=== PATIENT | female | born 1970 | race Caucasian/White ===

== ENCOUNTER 2022-03-29 21:02 | Emergency (ER) | payer SELFPAY ==
[~2022-03-29] VITALS: Ht 152.4 cm; Wt 59.0 kg
[2022-03-29 22:10] VITALS: BP 124/60
--- NOTE | 2022-03-29 22:13 | NUR ---
TO LOBBY A/W BED AMBULATORY
[2022-03-29] MEDS ORDERED: HYDROcodone/APAP 5/325 MG 1 TAB TAB PO ONE (22:50)
[2022-03-29] MEDS ORDERED: BACITRACIN OINT 500 UNITS/GM PKT TP ONE (22:50)
[2022-03-29] MEDS ORDERED: AMOXIL/CLAVULANATE 875/125 MG 1 TAB PO ONE (22:50)
[2022-03-29] MEDS ORDERED: IBUP-2213 PO (23:26)
[2022-03-29] MEDS ORDERED: AMOX1TAB8 PO (23:26)
--- NOTE | 2022-03-30 00:13 | NUR ---
XRAY AT BEDSIDE
[2022-03-30] MEDS ORDERED: AMOXIL/CLAVULANATE 875/125 MG 1 TAB ONE (00:47)
[2022-03-30] MEDS ORDERED: BACITRACIN OINT 500 UNITS/GM PKT TP ONE (00:47)
[2022-03-30] MEDS ORDERED: HYDROcodone/APAP 5/325 MG 1 TAB TAB ONE (00:47)
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
[2022-03-30 01:12] VITALS: BP 120/64
--- NOTE | 2022-03-30 01:13 | NUR ---
Patient discharged with v/s stable. Written and verbal after care instructions given and explained. Patient alert, oriented and verbalized understanding of instructions. Ambulatory with steady gait. All questions addressed prior to discharge. ID band removed. Patient advised to follow up with PMD. Rx of AMOX-CLAV 875-125 TAB AND IBUPROFEN given. Patient educated on indication of medication including possible reaction and side effects. Opportunity to ask questions provided and answered. VSS, A/OX4, UNLABORED BREATHING, AMBULATORY, AND CALM DEMEANOR.
--- NOTE | 2022-03-30 04:28 | NUR ---
DOG BITE REPORT FAXED TO [facility]
== END 2022-03-30 01:12 | disposition home or self-care (01) ==
LOC: MED 21:02
DX: S81.852A Open bite, left lower leg, initial encounter (principal); S81.851A Open bite, right lower leg, initial encounter; Z79.899 Other long term (current) drug therapy; W54.0XXA Bitten by dog, initial encounter; Y93.89 Activity, other specified; Y92.89 Other specified places as the place of occurrence of the external cause; Y99.8 Other external cause status
CPT/HCPCS: 73562; 90471; 90715; 99283; Q0092